=== PATIENT | female | born 1955 | race African-American/Black ===

== ENCOUNTER 2017-11-29 15:39 | Inpatient (IN) | payer OTHER ==
[~2017-11-29 15:39] MED LIST: ceFAZolin 2GM PREMIX 2 GM/50 ML BAG IV
[2017-11-29] MEDS: LIDOCAINE 1% Multi-Dose 20 ML VIAL. ID (16:06)
[2017-11-29] MEDS: MORPHINE SULFATE 4 MG/ML DISP.SYRIN. IV/SQ ×3 (16:27→18:03)
[2017-11-29] MEDS ORDERED: SUCCINYLCHOLINE 200 MG/10 ML VIAL. (18:17)
[2017-11-29] MEDS ORDERED: ROCURONIUM 50 MG/5 ML VIAL. (18:17)
[2017-11-29] MEDS ORDERED: LIDOCAINE 1% PF 5 ML VIAL. (18:17)
[2017-11-29] MEDS ORDERED: PROPOFOL 20 ML IV (18:17)
[2017-11-29] MEDS ORDERED: fentaNYL PF VIAL 100 MCG/2 ML VIAL (18:17)
[2017-11-29] MEDS: HYDROmorphone 2 MG/ML VIAL IV (18:23)
[2017-11-29] MEDS: IV RINGERS,LACTATED 1000ML 1,000 ML IV ×2 (18:25→21:43)
[2017-11-29] MEDS ORDERED: LIDOCAINE 1% PF 2 ML VIAL. ID ×2 (18:30→21:45)
[2017-11-29] MEDS ORDERED: MORPHINE SULFATE 4 MG/ML DISP.SYRIN. IV (18:30)
[2017-11-29] MEDS ORDERED: fentaNYL PF VIAL 100 MCG/2 ML VIAL IV ×3 (18:30→21:45)
[2017-11-29] MEDS ORDERED: ONDANSETRON PF 4 MG/2 ML VIAL. IV ×3 (18:30→21:45)
[2017-11-29] MEDS ORDERED: DEXAMETHASONE SOD PHOS 20 MG/5 ML VIAL. (19:13)
[2017-11-29] MEDS ORDERED: DESFLURANE 61 TO 120 MINUTES IH (19:13)
[2017-11-29] MEDS ORDERED: GLYCOPYRROLATE 1 MG/5 ML VIAL. (19:41)
[2017-11-29] MEDS ORDERED: ONDANSETRON PF 4 MG/2 ML VIAL. (19:41)
[2017-11-29] MEDS ORDERED: NEOSTIGMINE 10 MG/10 ML VIAL. (19:41)
[2017-11-29] MEDS ORDERED: HYDROmorphone 2 MG/ML VIAL IV (21:15)
[2017-11-29] MEDS: ALBUTEROL SULFATE 2.5 MG/3 ML NEBU. NEB (21:32)
[2017-11-29] MEDS ORDERED: PROCHLORPERAZINE 10 MG/2 ML VIAL. IV (21:45)
[2017-11-29] MEDS ORDERED: MORPHINE SULFATE 2 MG/ML DISP.SYRIN. IV (21:45)
[2017-11-29] MEDS ORDERED: ONDANSETRON ODT 4 MG TAB.RAPDIS. PO (21:45)
[2017-11-29] MEDS: fentaNYL PF VIAL 100 MCG/2 ML VIAL IV (21:50)
[2017-11-29] MEDS: PROCHLORPERAZINE 10 MG/2 ML VIAL. IV (21:51)
[2017-11-29 22:12] LABS: POC GLUCOSE 200 mg/dL (70-99)
[2017-11-30] MEDS: ACETAMINOPHEN 500 MG TABLET PO ×4 (00:09→18:03)
[2017-11-30] MEDS: SENNOSIDES 8.6 MG TABLET PO (08:48)
[2017-11-30] MEDS ORDERED: ALBUTEROL SULFATE 2.5 MG/3 ML NEBU. NEB (10:00)
[2017-11-30] MEDS: oxyCODONE IR 5 MG TABLET PO ×2 (10:26→16:23)
[2017-11-30] MEDS: hydroCHLOROthiazide 12.5 MG CAPSULE PO (10:28)
[2017-11-30] MEDS: LISINOPRIL 10 MG TABLET PO (10:28)
[2017-11-30] MEDS: ALBUTEROL SULFATE 2.5 MG/3 ML NEBU. NEB ×2 (10:42→15:35)
[2017-11-30] MEDS ORDERED: BUDESONIDE 0.5 MG/2 ML NEBU. NEB (20:00)
[2017-11-30] MEDS ORDERED: EZETIMIBE 10 MG TABLET. PO (21:00)
== END 2017-11-30 19:40 | disposition home or self-care (01) | DRG 512 ==
LOC: ER 15:39 → 4 NORTH 21:30
PROVIDERS: Internal Medicine
PROC: 01N50ZZ Release Median Nerve, Open Approach (ICD-10-PCS; principal; 2017-11-29 18:20)
PROC: 0PSJ04Z Reposition Left Radius with Internal Fixation Device, Open Approach (ICD-10-PCS; 2017-11-29 18:20)
DX: S52.502A Unspecified fracture of the lower end of left radius, initial encounter for closed fracture (principal); S09.90XA Unspecified injury of head, initial encounter; G56.00 Carpal tunnel syndrome, unspecified upper limb; S52.612A Displaced fracture of left ulna styloid process, initial encounter for closed fracture; F17.210 Nicotine dependence, cigarettes, uncomplicated; I10 Essential (primary) hypertension; J44.9 Chronic obstructive pulmonary disease, unspecified; M19.90 Unspecified osteoarthritis, unspecified site; W01.0XXA Fall on same level from slipping, tripping and stumbling without subsequent striking against object, initial encounter; Y99.0 Civilian activity done for income or pay; Y93.89 Activity, other specified; Y92.89 Other specified places as the place of occurrence of the external cause
CPT/HCPCS: 36415; 70450; 73090; 73100; 73110; 76000; 82306; 82962; 94640; 94760; 97166-GO; C1713; J0330; J0690; J0780; J1100; J1170; J2270; J2405; J2704; J2710; J3010; J3490; J7613